=== PATIENT | male | born 1950 | race Caucasian/White ===

== ENCOUNTER 2017-02-14 20:58 | Emergency (ER) | payer OTHER ==
[~2017-02-14] VITALS: Ht 172.7 cm; Wt 81.6 kg
[2017-02-14 22:40] LABS: UA SPECIFIC GRAVITY 1.015 (1.005-1.035); microscopic required? YES; urine erythrocyte 3+ (NEGATIVE)
[2017-02-14 22:41] LABS: BASOPHIL % 0.1 % (0-2); PLATELET COUNT 195 x10^3mcL (130-400)
[2017-02-14 22:43] LABS: RED CELL DISTRIBUTION WIDTH 15.2 % (11.5-14.5)
[2017-02-14 22:49] LABS: CALCIUM 8.8 mg/dL (8.5-10.1); CARBON DIOXIDE 30.4 mmol/L (21-32); CREATININE SERUM 1.6 mg/dL (0.7-1.3); POTASSIUM SERUM 4.2 mmol/L (3.5-5.1)
[2017-02-14 22:56] LABS: ALBUMIN 3.4 g/dL (3.4-5.0); BILIRUBIN TOTAL 0.36 mg/dL (0.20-1.00); TOTAL PROTEIN, SERUM 6.6 g/dL (6.4-8.2)
[2017-02-14 23:57] VITALS: BP 132/51
== END 2017-02-14 23:57 | disposition home or self-care (01) ==
LOC: ED 20:58
PROVIDERS: Emergency Medicine Emergency Medical Services
DX: N20.1 Calculus of ureter (principal); M19.90 Unspecified osteoarthritis, unspecified site
CPT/HCPCS: 36415

== ENCOUNTER 2020-04-09 12:19 | Emergency (ER) | payer BC, OTHER ==
[~2020-04-09] VITALS: Ht 177.8 cm; Wt 82.1 kg
[2020-04-09 12:31] VITALS: BP 160/88; Ht 177.8 cm; Wt 82.1 kg
[2020-04-09 13:24] LABS: BASOPHIL % 0.2 % (0.2-1.5); PLATELET COUNT 212 x10^3mcL (152-348)
[2020-04-09 13:32] LABS: RED CELL DISTRIBUTION WIDTH 14.6 % (12.1-16.2)
[2020-04-09 14:23] LABS: CALCIUM 8.9 mg/dL (8.5-10.1); POTASSIUM SERUM 4.3 mmol/L (3.5-5.1)
[2020-04-09 14:28] LABS: ALBUMIN 3.9 g/dL (3.4-5.0); BILIRUBIN TOTAL 0.4 mg/dL (0.20-1.00); TOTAL PROTEIN, SERUM 7.1 g/dL (6.4-8.2)
[2020-04-09 14:44] LABS: rbc morphology (normal/abnorm) NORMAL (NORMAL)
[2020-04-09 15:52] LABS: CARBON DIOXIDE 24.5 mmol/L (21-32); CREATININE SERUM 1.4 mg/dL (0.7-1.3)
== END 2020-04-09 16:26 | disposition home or self-care (01) ==
LOC: ED 12:19
DX: R07.89 Other chest pain (principal)